=== PATIENT | female | born 1945 | race Caucasian/White ===

== ENCOUNTER 2019-01-01 07:02 | Inpatient (IN) ==
--- NOTE | 2018-12-20 11:15 | EKG Report ---
Test Performed on : 12/20/2018 10:49:00 AM Test Reason : pat Blood Pressure : / mmHG Vent. Rate : 092 BPM Atrial Rate : 092 BPM P-R Int : 152 ms QRS Dur : 092 ms QT Int : 344 ms P-R-T Axes : 039 021 023 degrees QTc Int : 425 ms Normal sinus rhythm. Normal ECG When compared with ECG of 17-FEB-2018 05:40, QRS duration has increased ST no longer elevated in Inferior leads Confirmed by Fidel SIMMONS, Luis Weaver ([id number]) on 12/20/2018 8:51:49 PM
[2018-12-20 11:44] LABS: HEMOGLOBIN A1C 5.3 % (4.8-6.0)
[2018-12-20 13:42] LABS: URINE SOURCE CLEAN CATCH
[2018-12-20 13:44] LABS: BASO# 0.04 X1000 (0.0-0.2); BASO% 0.5 % (0.0-0.8); HEMATOCRIT 34.2 % (37.0-47.0); HEMOGLOBIN 11.8 g/dL (12.0-16.0); IMM GRAN# 0.02 X1000 (0.0-0.04); IMM GRAN% 0.2 % (0.0-0.5); LYMPH# 2.45 X1000 (1.2-3.4); LYMPH% 28.2 % (20.5-51.1); MCH 32.2 PG (27-31); MCHC 34.5 g/dL (33-37); MCV 93.2 FL (81-99); MONO# 1.13 X1000 (0.11-0.59); MPV 9.2 FL (7.4-10.4); NEUT# 5.06 X1000 (1.4-6.5); NEUT% 58.1 % (42.2-75.2); PLT 232 X1000 (130-400); RBC 3.67 XMIL (4.2-5.4); RDW 14.9 % (11.5-14.5)
[2018-12-20 13:46] LABS: BILIRUBIN URINE NEGATIVE (NEGATIVE); BLOOD URINE NEGATIVE (NEGATIVE); COLOR YELLOW; GLUCOSE URINE NEGATIVE (NEGATIVE); KETONE URINE NEGATIVE (NEGATIVE); LEUKOCYTES URINE MODERATE (NEGATIVE); NITRITE URINE NEGATIVE (NEGATIVE); PROTEIN URINE 30 mg/dL (NEGATIVE); SP GRAVITY URINE 1.019; TURBIDITY URINE CLEAR (CLEAR); UROBILINOGEN URINE NORMAL (NORMAL)
[2018-12-20 13:47] LABS: UR EPITHELIAL CELLS <10 /HPF (<10); URINE BACTERIA NEGATIVE /HPF; URINE RBC <10 /HPF (<10); URINE WBC <10 /HPF (<10)
[2018-12-20 13:53] LABS: PROTIME 13.3 Seconds (11.0-16.0)
[2018-12-20 13:55] LABS: PTT 39.2 Seconds (22.3-41.8)
[2018-12-20 14:02] LABS: AGAP 13; BUN 8 mg/dL (8-22); CALCIUM 8.5 mg/dL (8.8-10.2); CHLORIDE 92 mmol/L (98-107); COSMO 267; CREATININE 0.9 mg/dL (0.5-0.9); ESTIMATED GFR > 60; GLUCOSE 133 mg/dL (70-104); POTASSIUM 4.3 mmol/L (3.5-5.1); SODIUM 133 mmol/L (136-145); TCO2 28 mmol/L (25-35)
[2019-01-01] MEDS ORDERED: LYRICA ONE (07:43)
[2019-01-01] MEDS ORDERED: REGLAN ONE (07:43)
[2019-01-01] MEDS ORDERED: COLACE ONE (07:43)
[2019-01-01] MEDS ORDERED: PEPCID ONE (07:43)
[2019-01-01] MEDS ORDERED: LR 1,000 ML ONE ×2 (07:44→10:48)
[2019-01-01] MEDS ORDERED: CELEBREX ONE (07:44)
[2019-01-01] MEDS ORDERED: KEFZOL 1 GM/D5W 2 GM/100 ML IVPB ONE (07:44)
[2019-01-01] MEDS ORDERED: DIPRIVAN 1% ONE (08:03)
[2019-01-01] MEDS ORDERED: VERSED ONE (08:03)
[2019-01-01] MEDS ORDERED: SENSORCAINE 0.25%/EPI 1:200,000 ONE (08:04)
[2019-01-01] MEDS ORDERED: DURAMORPH ONE (08:04)
[2019-01-01] MEDS ORDERED: VANCOMYCIN ONE (08:04)
[2019-01-01] MEDS ORDERED: TORADOL ONE (08:04)
[2019-01-01] MEDS ORDERED: SODIUM CHLORIDE 0.9% ONE (08:04)
[2019-01-01] MEDS ORDERED: EXPAREL 1.3% ONE (08:04)
[2019-01-01] MEDS ORDERED: FENTANYL ONE (08:50)
[2019-01-01] MEDS: CYKLOKAPRON 1,000 MG/NS 2,000 MG/200 ML IVPB ONE ×2 (09:10→10:08)
[2019-01-01] MEDS ORDERED: OFIRMEV 1000 MG/ISOTONIC SOLN 1,000 MG/100 ML BOTTLE ONE (09:48)
[2019-01-01] MEDS ORDERED: ZOFRAN ONE (09:48)
[2019-01-01] MEDS ORDERED: NEO-SYNEPHRINE ONE (09:48)
[2019-01-01] MEDS ORDERED: DECADRON ONE (09:48)
[2019-01-01 09:51] LABS: URINE SOURCE CATH
[2019-01-01 09:55] LABS: BILIRUBIN URINE NEGATIVE (NEGATIVE); BLOOD URINE NEGATIVE (NEGATIVE); COLOR YELLOW; GLUCOSE URINE NEGATIVE (NEGATIVE); KETONE URINE NEGATIVE (NEGATIVE); LEUKOCYTES URINE NEGATIVE (NEGATIVE); NITRITE URINE NEGATIVE (NEGATIVE); PH URINE 6.5; PROTEIN URINE NEGATIVE (NEGATIVE); SP GRAVITY URINE 1.014; TURBIDITY URINE CLEAR (CLEAR); UROBILINOGEN URINE NORMAL (NORMAL)
[2019-01-01 09:56] LABS: UR EPITHELIAL CELLS <10 /HPF (<10); URINE BACTERIA NEGATIVE /HPF; URINE RBC <10 /HPF (<10); URINE WBC <10 /HPF (<10)
[2019-01-01] MEDS ORDERED: NS 1,000 ML ONE (10:48)
--- NOTE | 2019-01-01 11:26 | Diag Imaging Result Doc PS360 ---
KNEE 1-2 VIEWS-RIGHT - 01/01/2019 INDICATION: post op TECHNIQUE: Two views COMPARISON: None FINDINGS: There has been right total knee arthroplasty with patellar resurfacing. Alignment is anatomic. No hardware fracture or loosening. IMPRESSION: No complication. Electronically signed by Jordi Carson 01/01/2019 11:24 AM
[2019-01-01] MEDS ORDERED: MORPHINE IV PRN ×3 (12:30)
[2019-01-01] MEDS ORDERED: OXY IR PO PRN (12:30)
[2019-01-01] MEDS ORDERED: ZOFRAN ODT PO PRN (12:30)
[2019-01-01] MEDS ORDERED: ZOFRAN IV PRN (12:30)
[2019-01-01] MEDS: ULTRAM PO SCH ×2 (13:28→19:00)
[2019-01-01] MEDS: NS 1,000 ML IV SCH (13:29)
--- NOTE | 2019-01-01 13:36 | OPERATIVE NOTE ---
PROCEDURE DATE: 01/01/2019 PREOPERATIVE DIAGNOSIS: Degenerative joint disease, right knee. POSTOPERATIVE DIAGNOSIS: Degenerative joint disease, right knee. PROCEDURE PERFORMED: Right total knee replacement. SURGEON: Pop Salazar MD. ELECTRONIC FUNDS TRANSFER COORDINATOR: DESMOND Conley. Mr. Lyons was necessary for proper retraction and manipulation of the leg during the case. ANESTHESIA: Spinal. COMPLICATION: None. PROCEDURE IN DETAIL: A 73-year-old female presents for surgical right knee replacement. Risks, benefits, and no guarantees were discussed and she is willing to proceed. She was taken to the operating room and satisfactory anesthesia was obtained. The right knee was prepped and draped in usual sterile fashion. A time-out was taken to confirm operative site, procedure, and patient. The leg was then wrapped with an Esmarch and tourniquet inflated to 300 mmHg. A midline incision was made over the front of the knee followed by a quad tendon-sparing arthrotomy. The patella was everted with freehand technique and resurfaced with a saw. With the patella subluxed laterally, the knee was flexed and an intramedullary hole made in the distal tibia and the distal tibia cutting block secured in 5 degrees of valgus. Distal tibial resection was made and the tibia sized to a DePuy Attune size 5 narrow femoral implant. The finishing block was secured and the anterior, posterior, and chamfer cuts sequentially made off the femur followed by a notch using the provided notch guide. Any remaining osteophytes were debrided from the femur. With a PCL retractor placed behind the tibia and the knee flexed to protect the neurovascular bundle, the tibial cutting block was secured with extramedullary alignment. Tibial resection was made and then flexion and extension gaps noted to be equal with a 5 mm thick spacer. The tibia was sized to a size 5 tibial tray. A trial reduction was performed with a size 5 tibial tray and 5 cruciate substituting femoral design and a 5 mm thick polyethylene bearing with good range of motion and stability. The patella was sized to a 35 medialized dome patella. Drill holes were placed for the patellar implant in the femoral component trial components removed. The bony surfaces were thoroughly irrigated with pulsatile lavage. Cement with a gram of vancomycin was then utilized to cement a DePuy size 5 tibial rotating platform base plate, a size 5 narrow right cruciate posterior stabilized femoral component and a 35 medialized dome patella. Excess cement was removed with a [place] elevator. While the cement cured, the joint capsule was injected with Exparel for pain management. A Hemovac drain placed. Afterwards, the arthrotomy was irrigated and a size 5, 5 mm thick posterior stabilized polyethylene bearing was placed in the tibial tray and the knee reduced. Final range of motion was 0 to 120 degrees with midline patellar tracking. The arthrotomy was copiously irrigated with irrigant and then closed over the drain with #1 Vicryl in the arthrotomy, 2-0 Vicryl in the subcutaneous and skin audrey on the skin edges. Sterile dressings completed the closure and the patient was recovered from anesthesia and transferred to the recovery room in stable condition. No intraoperative complications were noted. Instrument count and sponge count was correct at the time of closure. cc: Toño Salazar MD
[2019-01-01] MEDS ORDERED: PHENERGAN INJ PRN (13:49)
[2019-01-01] MEDS ORDERED: DEMEROL IV ONE (14:00)
[2019-01-01] MEDS: KEFZOL 2 GM/D5W 2 GM/50 ML IVPB IV SCH (16:24)
[2019-01-01] MEDS: TYLENOL PO SCH (16:27)
[2019-01-01] MEDS: CYMBALTA PO SCH (16:30)
[2019-01-01] MEDS: SYNTHROID PO SCH (16:30)
[2019-01-01] MEDS: MINIPRESS PO SCH (19:45)
[2019-01-01] MEDS: CELEBREX PO SCH (19:45)
[2019-01-01] MEDS: COLACE PO SCH (19:45)
[2019-01-01] MEDS: DEPAKOTE SPRINKLE PO SCH (19:45)
[2019-01-01] MEDS: REMERON PO SCH (19:46)
[2019-01-01] MEDS: PERIDEX MT SCH (19:46)
[2019-01-01] MEDS: SENOKOT PO SCH (19:47)
--- NOTE | 2019-01-01 21:06 | ORTHOPAEDICS PROGRESS NOTE ---
DATE: 01/01/2019 SUBJECTIVE: Ms. Grace is seen status post knee replacement. Her postop x-ray showed good alignment. OBJECTIVE: Vital signs are relatively stable. She is somewhat drowsy from pain management. She arouses easily. She appears to be alert and oriented. She is able move her toes up and downgoing, and has no motor or sensory deficits. Good capillary refill in the involved surgical limb. ASSESSMENT AND PLAN: We will plan on monitoring her. We have discussed with the nursing staff not to provide further narcotics unless she awakens and becomes less drowsy. She is currently on oxygen saturation monitor just for monitoring purposes. We will plan on mobilizing her and weaning lines, and discharging her later in the week. cc: Toño Salazar MD
--- NOTE | 2019-01-01 22:12 | CONSULTATION ---
DATE OF CONSULTATION: 01/01/2019 REASON FOR CONSULTATION: A 73-year-old white female. I was asked perioperative medical consult by Dr. Salazar. He performed right knee replacement. HISTORY OF PRESENT ILLNESS: She is a 73-year-old white female, was operated for intractable knee pain and had a right knee replacement. The patient was seen in my office on 11/14/2018. Apparently postoperative the patient is doing very well. She is insisting to go for rehab, and denies any chest pain or shortness of breath. She looks a little bit pale. PAST MEDICAL HISTORY: 1. Allergic rhinitis. 2. Left breast cancer lumpectomy in 2009. 3. Metabolic syndrome. 4. Acid reflux disease. 5. Hypothyroidism. 6. Schizophrenia. 7. Psoriasis. 8. Chronic constipation. PAST SURGICAL HISTORY: Bilateral cataract surgery, breast lumpectomy in 2009, appendectomy, cholecystectomy, port on the right side. MEDICATIONS: Colace 100 p.o. b.i.d.; duloxetine 60 mg daily; folic acid 1 mg daily; Remeron 30 mg daily; Risperdal 3 mg at bedtime; Synthroid 100 mcg daily; Ultracet 1 tablet 3 times daily. The patient was also started on Depakote. Clozapine she is taking 100 mg at bedtime and 25 two tablets p.o. b.i.d. ALLERGIES: Levaquin and NSAIDs. SOCIAL HISTORY: , lives in a penitentiary and retired. No smoking. No alcohol. No drug abuse. FAMILY HISTORY: Father of heart attack, and mother of heart problems. HEALTH MAINTENANCE: Flu vaccine 01/2018, pneumococcal 2015. Last mammography 06/2018. DEXA scan 06/2017. Was refusing colonoscopy. REVIEW OF SYSTEMS: No headache, no vision problem. No earache. No sore throat. Cardiopulmonary: No chest pain, shortness of breath, PND or orthopnea. GI: No nausea, vomiting, abdominal pain. No neurological symptoms or weakness. PHYSICAL EXAMINATION: On exam, temperature is 97.8 degrees, pulse is 88, blood pressure 135/71. HEENT exam: Slightly pale. No jaundice. Neck is supple. No lymphadenopathy. Chest: Bilateral air entry. Heart sounds are regular. No murmur. Belly is soft, nontender. Good bowel sounds. Right knee was operated. No neurological deficits. LABORATORY DATA: CBC: White cell count 8.7, hematocrit 34, platelets 232,000. PT/INR, SMA 7 and urinalysis are clear. ASSESSMENT AND PLAN: 1. A 73-year-old white female, status post right knee replacement. Postoperatively likely pale. We will check the CBC in the morning as well as SMA 7. 2. Schizophrenia, on clozapine. 3. Psoriatic rash, stable. 4. Continue postoperative care. 5. [facility] for rehabilitation. 6. We will follow up. Thanks for the kind referral. cc: MD Toño Marte MD
[2019-01-02] MEDS: REMERON PO SCH ×3 (00:18→22:00)
[2019-01-02] MEDS: CELEBREX PO SCH ×3 (00:18→21:57)
[2019-01-02] MEDS: SENOKOT PO SCH ×3 (00:18→22:00)
[2019-01-02] MEDS: COLACE PO SCH ×3 (00:20→21:58)
[2019-01-02] MEDS: PERIDEX MT SCH ×3 (00:21→21:59)
[2019-01-02] MEDS: PATIENT'S OWN MED PO SCH ×5 (00:21→21:59)
[2019-01-02] MEDS: DEPAKOTE SPRINKLE PO SCH ×3 (00:23→21:58)
[2019-01-02] MEDS: KEFZOL 2 GM/D5W 2 GM/50 ML IVPB IV SCH (00:26)
[2019-01-02] MEDS: NS 1,000 ML IV SCH ×4 (00:27→21:59)
[2019-01-02] MEDS: TYLENOL PO SCH ×5 (04:31→22:00)
[2019-01-02] MEDS: ULTRAM PO SCH ×4 (04:33→22:00)
[2019-01-02 06:52] LABS: BASO# 0.02 X1000 (0.0-0.2); BASO% 0.3 % (0.0-0.8); HEMATOCRIT 32.3 % (37.0-47.0); HEMOGLOBIN 10.7 g/dL (12.0-16.0); IMM GRAN# 0.02 X1000 (0.0-0.04); IMM GRAN% 0.3 % (0.0-0.5); LYMPH# 1.38 X1000 (1.2-3.4); LYMPH% 17.6 % (20.5-51.1); MCH 31.5 PG (27-31); MCHC 33.1 g/dL (33-37); MONO# 0.96 X1000 (0.11-0.59); MONO% 12.3 % (1.7-9.3); MPV 9.8 FL (7.4-10.4); NEUT# 5.45 X1000 (1.4-6.5); NEUT% 69.5 % (42.2-75.2); PLT 221 X1000 (130-400); RDW 14.9 % (11.5-14.5); WBC 7.83 X1000 (4.8-10.8)
[2019-01-02 07:02] LABS: AGAP 11; BUN 10 mg/dL (8-22); CALCIUM 8.3 mg/dL (8.8-10.2); CHLORIDE 101 mmol/L (98-107); COSMO 269; CREATININE 0.8 mg/dL (0.5-0.9); ESTIMATED GFR > 60; GLUCOSE 96 mg/dL (70-104); POTASSIUM 4.5 mmol/L (3.5-5.1); SODIUM 135 mmol/L (136-145); TCO2 23 mmol/L (25-35)
[2019-01-02] MEDS: ELOCON CREAM TOP SCH (09:27)
[2019-01-02] MEDS: ASPIRIN PO SCH (09:30)
--- NOTE | 2019-01-02 09:35 | ORTHOPAEDICS PROGRESS NOTE ---
DATE: 01/01/2019 SUBJECTIVE: Ms. Grace is seen status post total knee replacement. Currently, she is afebrile with stable vital signs. She is much more mentally awake and alert today. Her bandage is clean and dry. She appears to be motor and sensory intact with no signs of DVT. I will plan on mobilizing her today and discontinuing IV lines. She has requested rehab placement. Will get rn social services involved with inpatient rehab placement. cc: Toño Salazar MD
[2019-01-02] MEDS: CYMBALTA PO SCH (09:39)
[2019-01-02] MEDS: PEPCID PO SCH (09:42)
[2019-01-02] MEDS: SYNTHROID PO SCH (09:43)
[2019-01-02] MEDS: THERA M PLUS PO SCH (09:43)
[2019-01-02] MEDS: TUMS PO SCH (09:44)
[2019-01-02] MEDS: OXY IR PO PRN ×2 (12:49→17:11)
--- NOTE | 2019-01-02 21:45 | PROGRESS NOTE ---
DATE: 01/02/2019 SUBJECTIVE: The patient is doing better and no complaints. She was on clozapine. We will restart the medications for underlying bipolar/paranoid schizophrenia. REVIEW OF SYSTEMS: None reported. PHYSICAL EXAMINATION: Vital signs: Temperature is 97 degrees, pulse 93. Vitals are stable. HEENT exam: No anemia noted. Chest: Clear. Heart: Sounds are regular. Abdomen: Belly is soft, nontender. INVESTIGATIONS: CBC: White cell count 7.8, hematocrit 32.3, platelets 221,000. Sodium 135, potassium 4.5, chloride 101, BUN 10, creatinine 0.8, glucose 96, A1c 5.3. Urinalysis is clear. ASSESSMENT AND PLAN: 1. Status post right knee replacement, stable. 2. Bipolar, paranoid schizophrenia. We will identify the clozapine doses. Currently not on the medication. Continue on present medicines for underlying paranoid schizophrenia. We will decrease the IV fluids, and patient is willing to go for rehab. LEVEL OF DOCUMENTATION: 25 minutes. cc: MD Toño Marte MD
[2019-01-02] MEDS: MINIPRESS PO SCH (21:58)
[2019-01-03] MEDS: TYLENOL PO SCH ×5 (04:39→23:45)
[2019-01-03] MEDS: ULTRAM PO SCH ×5 (06:30→22:00)
[2019-01-03 06:32] LABS: HEMATOCRIT 26.9 % (37.0-47.0)
[2019-01-03] MEDS: THERA M PLUS PO SCH (10:46)
[2019-01-03] MEDS: PERIDEX MT SCH ×2 (10:47→21:36)
[2019-01-03] MEDS: ELOCON CREAM TOP SCH (10:48)
[2019-01-03] MEDS: ASPIRIN PO SCH (10:49)
[2019-01-03] MEDS: PEPCID PO SCH (10:49)
[2019-01-03] MEDS: DEPAKOTE SPRINKLE PO SCH ×2 (10:50→21:37)
[2019-01-03] MEDS: COLACE PO SCH ×2 (10:51→21:36)
[2019-01-03] MEDS: SENOKOT PO SCH ×2 (10:51→21:37)
[2019-01-03] MEDS: TUMS PO SCH (10:52)
[2019-01-03] MEDS: SYNTHROID PO SCH (10:53)
[2019-01-03] MEDS: CELEBREX PO SCH ×2 (10:56→21:37)
[2019-01-03] MEDS: CYMBALTA PO SCH (10:56)
[2019-01-03] MEDS: PATIENT'S OWN MED PO SCH ×3 (10:58→21:51)
--- NOTE | 2019-01-03 17:44 | ORTHOPAEDICS PROGRESS NOTE ---
DATE: 01/03/2019 SUBJECTIVE DATA: Ms. Grace is seen on postoperative day 2 of her right total knee arthroplasty. She states her pain level is a 1/10 at this time. She states she did get up with physical therapy and walk several times around the nursing station today. She denies nausea or vomiting at this time. OBJECTIVE DATA: The patient was slightly lethargic upon waking. There is good sensation in right lower extremity. There are good pedal pulses. There is good capillary refill in the toes. There is negative Homans sign. The bandages are clean and dry.Current Vital Signs: Stable. ASSESSMENT: Degenerative joint disease, right knee with right total knee arthroplasty. PLAN: Plan on hopefully getting Ms. Grace out tomorrow to inpatient rehab. We will check on her in the morning and see how she is doing at that time to get her discharged. Dictated by DESMOND Conley for Toño Salazar MD cc: DESMOND Conley MD
--- NOTE | 2019-01-03 20:54 | PROGRESS NOTE ---
DATE: 01/03/2019 SUBJECTIVE: The patient is doing better. No complaints. Wants to go for rehab. Hematocrit decreased to 26. REVIEW OF SYSTEMS: No chest pain, shortness of breath. PHYSICAL EXAMINATION: Vital signs: Temperature is 97 degrees, pulse 83. Vitals are stable. HEENT Exam: Is slightly pale. Chest: Clear. Heart: Sounds are regular. Abdomen: Soft, nontender. Extremities: Right knee has bandage applied. INVESTIGATIONS: Hematocrit 26.9. ASSESSMENT AND PLAN: 1. Status post right knee replacement stable complicated by anemia. Out of the bed with physical therapy. 2. History of bipolar schizophrenia on clozapine and Depakote. 3. Hypertension on [place]. 4. Psoriatic arthritis, stable. Continue present treatment planning to go for rehab. Appreciated consultation. While she is in the hospital, we will follow her. LEVEL OF DOCUMENTATION: [15] cc: MD Toño Marte MD MTDD
[2019-01-03] MEDS: MINIPRESS PO SCH (21:37)
[2019-01-03] MEDS: REMERON PO SCH (21:37)
[2019-01-04] MEDS: ULTRAM PO SCH ×2 (04:00→10:38)
[2019-01-04] MEDS: NS 1,000 ML IV SCH (05:37)
[2019-01-04 06:35] LABS: HEMATOCRIT 27.3 % (37.0-47.0)
[2019-01-04] MEDS: TYLENOL PO SCH (06:50)
--- NOTE | 2019-01-04 07:59 | DISCHARGE SUMMARY ---
ADMISSION DATE: 01/01/2019 DISCHARGE DATE: 01/04/2019 ADMITTING DIAGNOSIS: Degenerative joint disease of the knee. ADDITIONAL DIAGNOSIS: History of depression and anxiety. DISCHARGE DIAGNOSES: 1. Degenerative joint disease of the knee. 2. History of depression and anxiety. ADMITTING HISTORY AND HOSPITAL COURSE: A 73-year-old female was admitted for total knee replacement. She underwent knee replacement without complication. She has been mobilizing since surgery. She has had a stable postop course. Currently, she is awake and alert with stable vital signs. The incision is clean and dry. She is progressing with therapy. She is transferred to rehab for continued convalescent care and strength training, as well as activities of daily living prior to returning home. She can be mobilized full weightbearing. [place] can be removed in 10 days. We will see her after the rehab. She can return in the interim for any worsening signs or symptoms. DISCHARGE MEDICATIONS: Include Oxy-IR 5 mg 1 to 2 every 3 hours as needed for pain, Bactrim DS b.i.d. for 7 days, clonazepam 100 mg, Duloxetine 80 mg, Divalproex 125 mg, Prazosin 1 mg daily, Sulindac 200 mg daily. DISCHARGE INSTRUCTIONS: She is to be mobilized full weightbearing for total knee rehab. She can return in the interim for any worsening signs or symptoms. cc: Toño Salazar MD
--- NOTE | 2019-01-04 08:04 | Diag Imaging Result Doc PS360 ---
CHEST-1 VIEW - 01/04/2019 INDICATION: rehab COMPARISON: 02/28/2018 FINDINGS: Stable right chest port. Lung volumes are severely low. No infiltrates or edema. Heart size is normal. IMPRESSION: Low lung volumes. No acute disease. Electronically signed by Jordi Carson 01/04/2019 8:01 AM
[2019-01-04 08:49] VITALS: BP 138/59
[2019-01-04] MEDS: PEPCID PO SCH (10:35)
[2019-01-04] MEDS: PERIDEX MT SCH (10:35)
[2019-01-04] MEDS: CELEBREX PO SCH (10:35)
[2019-01-04] MEDS: ELOCON CREAM TOP SCH ×2 (10:35→10:37)
[2019-01-04] MEDS: DEPAKOTE SPRINKLE PO SCH (10:35)
[2019-01-04] MEDS: ASPIRIN PO SCH (10:36)
[2019-01-04] MEDS: SENOKOT PO SCH (10:36)
[2019-01-04] MEDS: SYNTHROID PO SCH (10:36)
[2019-01-04] MEDS: THERA M PLUS PO SCH (10:37)
[2019-01-04] MEDS: COLACE PO SCH (10:37)
[2019-01-04] MEDS: CYMBALTA PO SCH (10:37)
[2019-01-04] MEDS: PATIENT'S OWN MED PO SCH (10:37)
[2019-01-04] MEDS: TUMS PO SCH (10:38)
== END 2019-01-04 12:48 | DRG 470 ==
LOC: SURHOLD 07:02 → 4N 08:45
PROVIDERS: ADMIT Orthopaedic Surgery Adult Reconstructive Orthopaedic Surgery; ATTEND Orthopaedic Surgery Adult Reconstructive Orthopaedic Surgery